=== PATIENT | female | born 1970 | race Two or more races ===

== ENCOUNTER 2023-08-07 03:35 | Inpatient (IN) | payer MEDICARE, MEDICAID ==
[~2023-08-07 03:35] MED LIST: ACET-2247 PO; ALBU2.5V39 NEB; AMIO200T68 PO; BISA10SU11 PR; DOCU-385 PO; HEPA500018 SQ; INSU100V SQ; IPRA0.2S49 NEB; PANT40VI14 IVP; TRAZ-252 PO
[2023-08-07 07:30] VITALS: BP 121/66; PULSE 73; RESP 20; TEMP 98.7
[2023-08-07 07:34] VITALS: BP 121/66; PULSE 73; RESP 18; TEMP 98.7
[2023-08-07] MEDS ORDERED: MORPHINE SULFATE 2 MG/ML SYRINGE IVP PRN (10:00)
[2023-08-07] MEDS ORDERED: REMDESIVIR 200 MG in SODIUM CHLORIDE 0.9% 250 ML IV ONE (10:00)
[2023-08-07] MEDS ORDERED: BISACODYL 10 MG RECTAL RECTAL SUPPOSITORY PR PRN (10:00)
[2023-08-07] MEDS ORDERED: ONDANSETRON HCL 4 MG/2 ML VIAL IVP PRN (10:00)
[2023-08-07] MEDS ORDERED: SODIUM CHLORIDE 0.9% 250 ML IV ONE (10:22)
[2023-08-07 11:31] VITALS: BP 131/68; PULSE 73; RESP 20; TEMP 99
[2023-08-07] MEDS: SODIUM CHLORIDE 1 GM TABLET PO SCH ×3 (12:04→20:52)
[2023-08-07 13:26] LABS: GLUCOMETER DEV NAME(LOC) 5N.2C; GLUCOSE,POINT OF CARE 129 MG/DL (70-110)
[2023-08-07 15:36] VITALS: BP 149/78; PULSE 78; RESP 20; TEMP 99.9
[2023-08-07] MEDS: HEPARIN SODIUM,PORCINE 5,000 UNITS/ML VIAL SQ SCH ×2 (16:00→23:44)
[2023-08-07 18:00] LABS: SODIUM,URINE RANDOM 88 mmol/l (20-110)
[2023-08-07 18:22] LABS: OSMOLALITY,URINE 383 mOsm/kg (50-1500)
[2023-08-07] MEDS: DOCUSATE SODIUM 100 MG CAPSULE PO SCH (20:52)
[2023-08-07] MEDS: ZOLPIDEM TARTRATE 5 MG TABLET PO PRN (20:52)
[2023-08-07] MEDS: INSULIN GLARGINE,HUM.REC.ANLOG 100 UNITS/ML SQ SCH (21:00)
[2023-08-07] MEDS: ACETAMINOPHEN 325 MG TABLET PO PRN (21:04)
[2023-08-07 21:39] VITALS: BP 158/75; PULSE 75; RESP 20; TEMP 100.3
[2023-08-07 23:43] VITALS: BP 138/85; PULSE 81; RESP 20; TEMP 98.9
[2023-08-08 00:16] LABS: GLUCOMETER DEV NAME(LOC) 5S.1B; GLUCOSE,POINT OF CARE 141 MG/DL (70-110)
[2023-08-08 04:08] VITALS: BP 122/68; PULSE 69; RESP 20; TEMP 98.6
[2023-08-08] MEDS: ALBUTEROL SULFATE HFA 90 MCG/PUFF 8 GM INHALER IH PRN (04:09)
[2023-08-08] MEDS: ACETAMINOPHEN 325 MG TABLET PO PRN ×2 (06:26→20:57)
[2023-08-08 08:04] VITALS: BP 120/69; PULSE 65; RESP 18; TEMP 97.7
[2023-08-08] MEDS: DEXAMETHASONE SOD PHOS 4 MG/ML VIAL IVP SCH (08:47)
[2023-08-08] MEDS: REMDESIVIR 100 MG in SODIUM CHLORIDE 0.9% 250 ML IV SCH (08:48)
[2023-08-08] MEDS: INSULIN GLARGINE,HUM.REC.ANLOG 100 UNITS/ML SQ SCH ×2 (09:00→20:56)
[2023-08-08 09:01] LABS: GLUCOMETER DEV NAME(LOC) 5S.2C; GLUCOSE,POINT OF CARE 150 MG/DL (70-110)
[2023-08-08] MEDS ORDERED: ChlorproMAZINE HCL 50 MG TABLET PO PRN (09:15)
[2023-08-08] MEDS: LORazepam 2 MG TABLET PO PRN (09:52)
[2023-08-08] MEDS: ClonazePAM 0.5 MG TABLET PO SCH ×3 (09:52→21:00)
[2023-08-08] MEDS: SODIUM CHLORIDE 1 GM TABLET PO SCH ×4 (09:53→20:41)
[2023-08-08] MEDS: PANTOPRAZOLE SODIUM 40 MG DR TABLET PO SCH (09:53)
[2023-08-08] MEDS: DOCUSATE SODIUM 100 MG CAPSULE PO SCH ×2 (09:53→20:41)
[2023-08-08] MEDS: AMIODARONE HCL 200 MG TABLET PO SCH (09:54)
[2023-08-08] MEDS: HEPARIN SODIUM,PORCINE 5,000 UNITS/ML VIAL SQ SCH ×3 (09:54→23:06)
[2023-08-08 10:46] LABS: GLUCOMETER DEV NAME(LOC) 5N.2C; GLUCOSE,POINT OF CARE 139 MG/DL (70-110)
[2023-08-08] MEDS: QUEtiapine FUMARATE 200 MG TABLET PO SCH ×3 (13:15→21:00)
[2023-08-08 16:02] VITALS: BP 102/58; PULSE 69; RESP 18; TEMP 97.5
[2023-08-08 20:01] VITALS: BP 125/68; PULSE 72; RESP 18; TEMP 98.4
[2023-08-09 01:05] VITALS: BP 136/70; PULSE 74; RESP 18; TEMP 99.3
[2023-08-09 03:30] VITALS: BP 129/66; PULSE 77; RESP 18; TEMP 99.1
[2023-08-09] MEDS: ACETAMINOPHEN 325 MG TABLET PO PRN ×2 (03:38→21:03)
[2023-08-09 08:00] VITALS: BP 129/69; PULSE 70; RESP 19; TEMP 98.1
[2023-08-09] MEDS: HEPARIN SODIUM,PORCINE 5,000 UNITS/ML VIAL SQ SCH ×3 (08:00→23:13)
[2023-08-09] MEDS: INSULIN GLARGINE,HUM.REC.ANLOG 100 UNITS/ML SQ SCH ×2 (09:00→21:20)
[2023-08-09] MEDS: PANTOPRAZOLE SODIUM 40 MG DR TABLET PO SCH (09:00)
[2023-08-09] MEDS: DEXAMETHASONE SOD PHOS 4 MG/ML VIAL IVP SCH (09:00)
[2023-08-09] MEDS: ClonazePAM 0.5 MG TABLET PO SCH ×2 (09:00→20:56)
[2023-08-09] MEDS: QUEtiapine FUMARATE 200 MG TABLET PO SCH ×2 (09:00→20:56)
[2023-08-09] MEDS: SODIUM CHLORIDE 1 GM TABLET PO SCH (09:00)
[2023-08-09] MEDS: DOCUSATE SODIUM 100 MG CAPSULE PO SCH ×2 (09:47→20:56)
[2023-08-09] MEDS: AMIODARONE HCL 200 MG TABLET PO SCH (09:47)
[2023-08-09] MEDS: REMDESIVIR 100 MG in SODIUM CHLORIDE 0.9% 250 ML IV SCH (09:49)
[2023-08-09 10:57] LABS: BASOPHILS % (AUTO) 0.1 % (0.0-2.0); EOSINOPHILS % (AUTO) 0 % (1.0-6.0); HEMATOCRIT 25.4 % (36-46); HEMOGLOBIN 8.4 g/dL (12.0-16.0); LYMPHOCYTES # (AUTO) 1.5 K/uL (1.0-4.8); LYMPHOCYTES % (AUTO) 15.2 % (22.0-44.0); MEAN CORPUSCULAR HEMOGLOBIN 26.6 pg (26.0-34.0); MEAN CORPUSCULAR VOLUME 81 fL (80-100); MONOCYTES % (AUTO) 10.5 % (2.0-9.0); NEUTROPHILS # (AUTO) 7.1 K/uL (1.8-7.7); NEUTROPHILS % (AUTO) 74.2 % (40.0-70.0); PLATELET COUNT (AUTO) 487 K/uL (150-450); RED BLOOD CELL COUNT(AUTO) 3.16 MIL/uL (4.00-5.20); RED CELL DISTRIBUTION WIDTH 18.4 % (11.5-14.5); WHITE BLOOD COUNT (AUTO) 9.6 K/uL (4.5-11.0)
[2023-08-09 11:18] LABS: ALANINE AMINOTRANSFERASE 16 U/L (12-78); ALBUMIN 2.4 g/dL (3.4-5.0); ALKALINE PHOSPHATASE 163 U/L (46-116); ANION GAP 3 mmol/L (8-16); ASPARTATE AMINOTRANSFERASE 58 U/L (15-37); BILIRUBIN,TOTAL 0.2 mg/dL (0.1-1.0); CALCIUM, TOTAL 8.6 mg/dL (8.8-10.5); CARBON DIOXIDE 30 mmol/L (22-29); CHLORIDE 89 mmol/L (98-107); CREATININE 0.76 mg/dL (0.60-1.30); GLOMERULAR FILTR. RATE CALC > 60 mL/min (>60); GLUCOSE,RANDOM 226 mg/dL (70-110); POTASSIUM 4.5 mmol/L (3.5-5.1); TOTAL PROTEIN, SERUM 9.1 g/dL (6.4-8.2); UREA NITROGEN, BLOOD 14 mg/dL (7-18)
[2023-08-09 11:40] LABS: SODIUM SERUM 122 mmol/L (136-145)
[2023-08-09] MEDS ORDERED: TOLVAPTAN 15 MG TABLET PO STA (11:53)
[2023-08-09] MEDS: NICOTINE 21 MG/24 HOUR PATCH TD SCH (16:17)
[2023-08-09 17:09] LABS: ANION GAP 5 mmol/L (8-16); CALCIUM, TOTAL 8.8 mg/dL (8.8-10.5); CARBON DIOXIDE 30 mmol/L (22-29); CHLORIDE 87 mmol/L (98-107); CREATININE 0.92 mg/dL (0.60-1.30); GLOMERULAR FILTR. RATE CALC > 60 mL/min (>60); GLUCOSE,RANDOM 182 mg/dL (70-110); POTASSIUM 4.7 mmol/L (3.5-5.1); UREA NITROGEN, BLOOD 19 mg/dL (7-18)
[2023-08-09 17:14] LABS: SODIUM SERUM 122 mmol/L (136-145)
[2023-08-09 19:39] LABS: ANION GAP 2 mmol/L (8-16); CALCIUM, TOTAL 8.8 mg/dL (8.8-10.5); CARBON DIOXIDE 32 mmol/L (22-29); CHLORIDE 88 mmol/L (98-107); CREATININE 0.82 mg/dL (0.60-1.30); GLOMERULAR FILTR. RATE CALC > 60 mL/min (>60); GLUCOSE,RANDOM 157 mg/dL (70-110); POTASSIUM 4.7 mmol/L (3.5-5.1); UREA NITROGEN, BLOOD 19 mg/dL (7-18)
[2023-08-09 19:45] LABS: SODIUM SERUM 122 mmol/L (136-145)
[2023-08-09] MEDS ORDERED: TOLVAPTAN 15 MG TABLET PO ONE (20:00)
[2023-08-09 20:05] VITALS: BP 128/76; PULSE 79; RESP 18; TEMP 99.1
[2023-08-09 21:19] LABS: COVID AG,FIA SOURCE NASAL SWAB
[2023-08-09 21:59] LABS: SARS-COV2 (COVID) ANTIGEN,FIA Positive (Negative)
[2023-08-10 05:09] VITALS: BP 109/64; PULSE 64; RESP 18; TEMP 97.9
[2023-08-10 07:51] LABS: GLUCOMETER DEV NAME(LOC) 6S.1B; GLUCOSE,POINT OF CARE 207 MG/DL (70-110)
[2023-08-10 08:28] VITALS: BP 119/60; PULSE 74; RESP 20; TEMP 98
[2023-08-10] MEDS: INSULIN GLARGINE,HUM.REC.ANLOG 100 UNITS/ML SQ SCH ×2 (09:00→20:41)
[2023-08-10] MEDS: NICOTINE 21 MG/24 HOUR PATCH TD SCH (09:15)
[2023-08-10] MEDS: HEPARIN SODIUM,PORCINE 5,000 UNITS/ML VIAL SQ SCH ×3 (09:15→23:00)
[2023-08-10] MEDS: ClonazePAM 0.5 MG TABLET PO SCH ×2 (09:15→20:40)
[2023-08-10] MEDS: PANTOPRAZOLE SODIUM 40 MG DR TABLET PO SCH (09:16)
[2023-08-10] MEDS: QUEtiapine FUMARATE 200 MG TABLET PO SCH ×2 (09:16→20:41)
[2023-08-10] MEDS: DOCUSATE SODIUM 100 MG CAPSULE PO SCH ×2 (09:16→21:00)
[2023-08-10] MEDS: AMIODARONE HCL 200 MG TABLET PO SCH (09:16)
[2023-08-10 11:42] LABS: BASOPHILS % (AUTO) 0.2 % (0.0-2.0); EOSINOPHILS % (AUTO) 0.1 % (1.0-6.0); HEMATOCRIT 23.1 % (36-46); HEMOGLOBIN 7.7 g/dL (12.0-16.0); LYMPHOCYTES # (AUTO) 1.8 K/uL (1.0-4.8); LYMPHOCYTES % (AUTO) 22.3 % (22.0-44.0); MEAN CORPUSCULAR HGB CONC 33.3 G/dL (31.0-37.0); MEAN CORPUSCULAR VOLUME 81 fL (80-100); MONOCYTES # (AUTO) 0.9 K/uL (0.1-1.0); MONOCYTES % (AUTO) 11.5 % (2.0-9.0); NEUTROPHILS # (AUTO) 5.4 K/uL (1.8-7.7); NEUTROPHILS % (AUTO) 65.9 % (40.0-70.0); PLATELET COUNT (AUTO) 405 K/uL (150-450); RED BLOOD CELL COUNT(AUTO) 2.85 MIL/uL (4.00-5.20); WHITE BLOOD COUNT (AUTO) 8.2 K/uL (4.5-11.0)
[2023-08-10 12:19] LABS: ALANINE AMINOTRANSFERASE 12 U/L (12-78); ALBUMIN 2.1 g/dL (3.4-5.0); ALKALINE PHOSPHATASE 127 U/L (46-116); ANION GAP 6 mmol/L (8-16); ASPARTATE AMINOTRANSFERASE 52 U/L (15-37); BILIRUBIN,TOTAL 0.2 mg/dL (0.1-1.0); CALCIUM, TOTAL 8.2 mg/dL (8.8-10.5); CARBON DIOXIDE 30 mmol/L (22-29); CHLORIDE 93 mmol/L (98-107); CREATININE 0.79 mg/dL (0.60-1.30); GLOMERULAR FILTR. RATE CALC > 60 mL/min (>60); GLUCOSE,RANDOM 166 mg/dL (70-110); POTASSIUM 4.1 mmol/L (3.5-5.1); SODIUM SERUM 129 mmol/L (136-145); TOTAL PROTEIN, SERUM 7.8 g/dL (6.4-8.2); UREA NITROGEN, BLOOD 20 mg/dL (7-18)
[2023-08-10 16:02] VITALS: BP 124/68; PULSE 74; RESP 20; TEMP 98.6
[2023-08-10] MEDS: SODIUM CHLORIDE 1 GM TABLET PO SCH ×2 (16:40→21:00)
[2023-08-10] MEDS: ACETAMINOPHEN 325 MG TABLET PO PRN (20:50)
[2023-08-11 05:32] VITALS: BP 120/66; PULSE 79; RESP 20; TEMP 99.3
[2023-08-11 08:30] VITALS: BP 128/73; PULSE 75; RESP 20; TEMP 99
[2023-08-11] MEDS: ClonazePAM 0.5 MG TABLET PO SCH ×2 (08:42→21:00)
[2023-08-11] MEDS: QUEtiapine FUMARATE 200 MG TABLET PO SCH ×2 (08:42→21:00)
[2023-08-11] MEDS: DOCUSATE SODIUM 100 MG CAPSULE PO SCH ×2 (08:42→21:00)
[2023-08-11] MEDS: HEPARIN SODIUM,PORCINE 5,000 UNITS/ML VIAL SQ SCH ×2 (08:42→15:29)
[2023-08-11] MEDS: AMIODARONE HCL 200 MG TABLET PO SCH (08:42)
[2023-08-11] MEDS: SODIUM CHLORIDE 1 GM TABLET PO SCH ×3 (08:42→21:00)
[2023-08-11] MEDS: PANTOPRAZOLE SODIUM 40 MG DR TABLET PO SCH (08:42)
[2023-08-11] MEDS: NICOTINE 21 MG/24 HOUR PATCH TD SCH (08:45)
[2023-08-11] MEDS: INSULIN GLARGINE,HUM.REC.ANLOG 100 UNITS/ML SQ SCH ×2 (09:00→21:00)
[2023-08-11 11:17] LABS: ALANINE AMINOTRANSFERASE 9 U/L (12-78); ALBUMIN 2.1 g/dL (3.4-5.0); ALKALINE PHOSPHATASE 124 U/L (46-116); ANION GAP 7 mmol/L (8-16); ASPARTATE AMINOTRANSFERASE 44 U/L (15-37); BILIRUBIN,TOTAL 0.2 mg/dL (0.1-1.0); CALCIUM, TOTAL 8.2 mg/dL (8.8-10.5); CARBON DIOXIDE 28 mmol/L (22-29); CHLORIDE 93 mmol/L (98-107); GLOMERULAR FILTR. RATE CALC > 60 mL/min (>60); GLUCOSE,RANDOM 205 mg/dL (70-110); POTASSIUM 4.7 mmol/L (3.5-5.1); SODIUM SERUM 128 mmol/L (136-145); TOTAL PROTEIN, SERUM 8.1 g/dL (6.4-8.2); UREA NITROGEN, BLOOD 18 mg/dL (7-18)
[2023-08-11 12:00] VITALS: BP 109/61; PULSE 80; RESP 20; TEMP 97.7
[2023-08-11 16:00] VITALS: BP 136/74; PULSE 75; RESP 20; TEMP 97.6
[2023-08-11 19:40] VITALS: BP 125/57; PULSE 74; RESP 20; TEMP 97.9
[2023-08-12 04:10] VITALS: BP 115/67; PULSE 75; RESP 16; TEMP 98.3
[2023-08-12] MEDS: ChlorproMAZINE HCL 50 MG/2 ML AMP IM PRN (04:29)
[2023-08-12] MEDS: LORazepam 2 MG/ML VIAL IM PRN (04:30)
[2023-08-12 06:06] LABS: GLUCOMETER DEV NAME(LOC) 6S.1B; GLUCOSE,POINT OF CARE 161 MG/DL (70-110)
[2023-08-12 07:06] LABS: ANION GAP 5 mmol/L (8-16); CALCIUM, TOTAL 8.4 mg/dL (8.8-10.5); CARBON DIOXIDE 29 mmol/L (22-29); CHLORIDE 94 mmol/L (98-107); GLOMERULAR FILTR. RATE CALC > 60 mL/min (>60); GLUCOSE,RANDOM 159 mg/dL (70-110); POTASSIUM 4.3 mmol/L (3.5-5.1); SODIUM SERUM 128 mmol/L (136-145); UREA NITROGEN, BLOOD 15 mg/dL (7-18)
[2023-08-12 07:29] VITALS: BP 118/68; PULSE 78; RESP 18; TEMP 98.4
[2023-08-12] MEDS: HEPARIN SODIUM,PORCINE 5,000 UNITS/ML VIAL SQ SCH ×4 (08:15→23:35)
[2023-08-12] MEDS: PANTOPRAZOLE SODIUM 40 MG DR TABLET PO SCH (08:15)
[2023-08-12] MEDS: ClonazePAM 0.5 MG TABLET PO SCH ×2 (08:15→20:09)
[2023-08-12] MEDS: AMIODARONE HCL 200 MG TABLET PO SCH (08:16)
[2023-08-12] MEDS: SODIUM CHLORIDE 1 GM TABLET PO SCH ×3 (08:16→20:10)
[2023-08-12] MEDS: NICOTINE 21 MG/24 HOUR PATCH TD SCH (08:16)
[2023-08-12] MEDS: DOCUSATE SODIUM 100 MG CAPSULE PO SCH ×3 (08:16→20:09)
[2023-08-12] MEDS: QUEtiapine FUMARATE 200 MG TABLET PO SCH ×2 (08:18→20:09)
[2023-08-12] MEDS: INSULIN GLARGINE,HUM.REC.ANLOG 100 UNITS/ML SQ SCH ×2 (08:52→20:10)
[2023-08-12 12:16] LABS: GLUCOMETER DEV NAME(LOC) 4E.2; GLUCOSE,POINT OF CARE 185 MG/DL (70-110)
[2023-08-12 15:08] VITALS: BP 122/72; PULSE 72; RESP 20; TEMP 97.8
[2023-08-12] MEDS: ACETAMINOPHEN 325 MG TABLET PO PRN (17:53)
[2023-08-12 19:10] VITALS: BP 117/67; PULSE 76; RESP 18; TEMP 98.7
[2023-08-12] MEDS: BENZONATATE 100 MG CAPSULE PO PRN (20:09)
[2023-08-12 20:11] LABS: GLUCOMETER DEV NAME(LOC) 6S.1B; GLUCOSE,POINT OF CARE 178 MG/DL (70-110)
[2023-08-13 05:10] VITALS: BP 123/67; PULSE 77; RESP 18; TEMP 98.7
[2023-08-13] MEDS: BENZONATATE 100 MG CAPSULE PO PRN (05:55)
[2023-08-13 06:01] LABS: GLUCOMETER DEV NAME(LOC) 6S.1B; GLUCOSE,POINT OF CARE 149 MG/DL (70-110)
[2023-08-13 07:09] VITALS: BP 126/72; PULSE 72; RESP 20; TEMP 98.4
[2023-08-13 07:46] LABS: GLUCOMETER DEV NAME(LOC) 6N.2B; GLUCOSE,POINT OF CARE 109 MG/DL (70-110)
[2023-08-13 08:57] LABS: EOSINOPHILS % (AUTO) 0.1 % (1.0-6.0); HEMATOCRIT 24.4 % (36-46); HEMOGLOBIN 7.8 g/dL (12.0-16.0); LYMPHOCYTES # (AUTO) 1.3 K/uL (1.0-4.8); LYMPHOCYTES % (AUTO) 13.9 % (22.0-44.0); MEAN CORPUSCULAR HEMOGLOBIN 26.4 pg (26.0-34.0); MEAN CORPUSCULAR HGB CONC 32.2 G/dL (31.0-37.0); MEAN CORPUSCULAR VOLUME 82 fL (80-100); MONOCYTES # (AUTO) 0.7 K/uL (0.1-1.0); MONOCYTES % (AUTO) 7.6 % (2.0-9.0); NEUTROPHILS # (AUTO) 7.3 K/uL (1.8-7.7); NEUTROPHILS % (AUTO) 77.4 % (40.0-70.0); PLATELET COUNT (AUTO) 440 K/uL (150-450); RED BLOOD CELL COUNT(AUTO) 2.97 MIL/uL (4.00-5.20); RED CELL DISTRIBUTION WIDTH 17.6 % (11.5-14.5); WHITE BLOOD COUNT (AUTO) 9.4 K/uL (4.5-11.0)
[2023-08-13 09:04] LABS: ANION GAP 4 mmol/L (8-16); CALCIUM, TOTAL 8.4 mg/dL (8.8-10.5); CARBON DIOXIDE 30 mmol/L (22-29); CHLORIDE 90 mmol/L (98-107); CREATININE 0.78 mg/dL (0.60-1.30); GLOMERULAR FILTR. RATE CALC > 60 mL/min (>60); GLUCOSE,RANDOM 215 mg/dL (70-110); POTASSIUM 4.4 mmol/L (3.5-5.1); UREA NITROGEN, BLOOD 12 mg/dL (7-18)
[2023-08-13 09:07] LABS: SODIUM SERUM 124 mmol/L (136-145)
[2023-08-13] MEDS ORDERED: TOLVAPTAN 15 MG TABLET PO ONE (10:00)
[2023-08-13] MEDS: HEPARIN SODIUM,PORCINE 5,000 UNITS/ML VIAL SQ SCH ×3 (10:12→23:09)
[2023-08-13] MEDS: MAGNESIUM HYDROXIDE SUSPENSION 30 ML UDCUP PO PRN (10:12)
[2023-08-13] MEDS: ACETAMINOPHEN 325 MG TABLET PO PRN ×2 (10:12→20:33)
[2023-08-13] MEDS: AMIODARONE HCL 200 MG TABLET PO SCH (10:13)
[2023-08-13] MEDS: QUEtiapine FUMARATE 200 MG TABLET PO SCH ×2 (10:13→20:32)
[2023-08-13] MEDS: NICOTINE 21 MG/24 HOUR PATCH TD SCH (10:13)
[2023-08-13] MEDS: DOCUSATE SODIUM 100 MG CAPSULE PO SCH ×2 (10:13→20:32)
[2023-08-13] MEDS: ClonazePAM 0.5 MG TABLET PO SCH ×2 (10:13→20:32)
[2023-08-13] MEDS: SODIUM CHLORIDE 1 GM TABLET PO SCH ×3 (10:13→20:32)
[2023-08-13] MEDS: PANTOPRAZOLE SODIUM 40 MG DR TABLET PO SCH (10:13)
[2023-08-13] MEDS: INSULIN GLARGINE,HUM.REC.ANLOG 100 UNITS/ML SQ SCH ×2 (10:14→20:33)
[2023-08-13 15:13] VITALS: BP 122/82; PULSE 68; RESP 18; TEMP 97.9
[2023-08-13 17:41] LABS: ANION GAP 4 mmol/L (8-16); CALCIUM, TOTAL 8.3 mg/dL (8.8-10.5); CARBON DIOXIDE 30 mmol/L (22-29); CHLORIDE 93 mmol/L (98-107); CREATININE 0.82 mg/dL (0.60-1.30); GLOMERULAR FILTR. RATE CALC > 60 mL/min (>60); GLUCOSE,RANDOM 282 mg/dL (70-110); SODIUM SERUM 127 mmol/L (136-145); UREA NITROGEN, BLOOD 15 mg/dL (7-18)
[2023-08-13 19:45] VITALS: BP 128/67; PULSE 82; RESP 20; TEMP 99.7
[2023-08-13 20:11] LABS: GLUCOMETER DEV NAME(LOC) 6N.2B; GLUCOSE,POINT OF CARE 232 MG/DL (70-110)
[2023-08-13] MEDS: TraZODone HCL 50 MG TABLET PO PRN (20:32)
[2023-08-13 23:36] LABS: GLUCOMETER DEV NAME(LOC) 6N.2B; GLUCOSE,POINT OF CARE 118 MG/DL (70-110)
[2023-08-14] VITALS (7 sets, daily range): BP systolic 95–140; BP diastolic 58–71; PULSE 68–90; RESP 18–20; TEMP 97.8–102
[2023-08-14 06:16] LABS: GLUCOMETER DEV NAME(LOC) 6S.1B; GLUCOSE,POINT OF CARE 86 MG/DL (70-110)
[2023-08-14] MEDS: HEPARIN SODIUM,PORCINE 5,000 UNITS/ML VIAL SQ SCH ×4 (08:00→23:39)
[2023-08-14] MEDS: NICOTINE 21 MG/24 HOUR PATCH TD SCH ×2 (08:23→09:00)
[2023-08-14] MEDS: PANTOPRAZOLE SODIUM 40 MG DR TABLET PO SCH (08:23)
[2023-08-14] MEDS: SODIUM CHLORIDE 1 GM TABLET PO SCH ×3 (08:24→20:35)
[2023-08-14] MEDS: AMIODARONE HCL 200 MG TABLET PO SCH ×2 (08:24→08:53)
[2023-08-14] MEDS: ClonazePAM 0.5 MG TABLET PO SCH ×2 (08:24→20:36)
[2023-08-14] MEDS: DOCUSATE SODIUM 100 MG CAPSULE PO SCH ×3 (08:24→20:35)
[2023-08-14] MEDS: QUEtiapine FUMARATE 200 MG TABLET PO SCH ×2 (08:24→20:35)
[2023-08-14 09:56] LABS: ANION GAP 4 mmol/L (8-16); CALCIUM, TOTAL 8.5 mg/dL (8.8-10.5); CARBON DIOXIDE 29 mmol/L (22-29); CHLORIDE 93 mmol/L (98-107); CREATININE 0.77 mg/dL (0.60-1.30); GLOMERULAR FILTR. RATE CALC > 60 mL/min (>60); GLUCOSE,RANDOM 189 mg/dL (70-110); POTASSIUM 4.3 mmol/L (3.5-5.1); SODIUM SERUM 126 mmol/L (136-145); UREA NITROGEN, BLOOD 10 mg/dL (7-18)
[2023-08-14] MEDS: INSULIN GLARGINE,HUM.REC.ANLOG 100 UNITS/ML SQ SCH ×2 (10:23→20:36)
[2023-08-14 11:10] LABS: COVID AG,FIA SOURCE NASAL SWAB
[2023-08-14] MEDS ORDERED: TOLVAPTAN 15 MG TABLET PO ONE (12:30)
[2023-08-14 12:40] LABS: SARS-COV2 (COVID) ANTIGEN,FIA Positive (Negative)
[2023-08-14 15:06] LABS: GLUCOMETER DEV NAME(LOC) 6S.1B; GLUCOSE,POINT OF CARE 137 MG/DL (70-110)
[2023-08-14 18:21] LABS: GLUCOMETER DEV NAME(LOC) 6S.1B; GLUCOSE,POINT OF CARE 224 MG/DL (70-110)
[2023-08-14] MEDS: ACETAMINOPHEN 325 MG TABLET PO PRN (18:51)
[2023-08-14] MEDS: TraZODone HCL 50 MG TABLET PO PRN (20:35)
[2023-08-14 21:01] LABS: GLUCOMETER DEV NAME(LOC) 6S.1B; GLUCOSE,POINT OF CARE 152 MG/DL (70-110)
[2023-08-15 02:35] LABS: APPEARANCE,URINE CLEAR (CLEAR); BILIRUBIN,URINE NEGATIVE (NEGATIVE); COLOR,URINE COLORLESS (YELLOW); GLUCOSE, URINE (UA) NEGATIVE (NEGATIVE); KETONES,URINE NEGATIVE (NEGATIVE); LEUKOCYTE ESTERASE ,URINE NEGATIVE (NEGATIVE); NITRATE,URINE NEGATIVE (NEGATIVE); OCCULT BLOOD,URINE LARGE (NEGATIVE); PROTEIN,URINE NEGATIVE (NEGATIVE); SPECIFIC GRAVITIY, URINE 1.003 (1.003-1.030); UROBILINOGEN,URINE <=1.0 mg/dL (<=1.0)
[2023-08-15 02:54] LABS: BACTERIA,URINE None Seen /HPF (None Seen); SQUAMOUS EPITHELIAL CELL,UR Few /LPF (None Seen); WBC,URINE None Seen /HPF (0-5)
[2023-08-15 03:58] VITALS: BP 106/61; PULSE 74; RESP 20; TEMP 98.2
[2023-08-15 06:21] LABS: GLUCOMETER DEV NAME(LOC) 4E.2; GLUCOSE,POINT OF CARE 94 MG/DL (70-110)
[2023-08-15 07:21] VITALS: BP 134/90; PULSE 86; RESP 19; TEMP 99.7
[2023-08-15] MEDS: HEPARIN SODIUM,PORCINE 5,000 UNITS/ML VIAL SQ SCH ×2 (08:00→16:00)
[2023-08-15] MEDS: PANTOPRAZOLE SODIUM 40 MG DR TABLET PO SCH ×2 (09:00→09:56)
[2023-08-15] MEDS: DOCUSATE SODIUM 100 MG CAPSULE PO SCH ×4 (09:00→21:00)
[2023-08-15] MEDS: AMIODARONE HCL 200 MG TABLET PO SCH (09:56)
[2023-08-15] MEDS: SODIUM CHLORIDE 1 GM TABLET PO SCH ×4 (09:56→20:53)
[2023-08-15] MEDS: NICOTINE 21 MG/24 HOUR PATCH TD SCH (09:56)
[2023-08-15] MEDS: QUEtiapine FUMARATE 200 MG TABLET PO SCH ×2 (09:56→20:54)
[2023-08-15] MEDS: ClonazePAM 0.5 MG TABLET PO SCH ×2 (09:56→20:54)
[2023-08-15] MEDS: INSULIN GLARGINE,HUM.REC.ANLOG 100 UNITS/ML SQ SCH ×2 (10:00→21:08)
[2023-08-15 10:42] LABS: CALCIUM, TOTAL 8.8 mg/dL (8.8-10.5); CARBON DIOXIDE 32 mmol/L (22-29); CHLORIDE 94 mmol/L (98-107); CREATININE 0.79 mg/dL (0.60-1.30); GLOMERULAR FILTR. RATE CALC > 60 mL/min (>60); GLUCOSE,RANDOM 167 mg/dL (70-110); PHOSPHORUS 3.6 mg/dL (2.5-4.9); POTASSIUM 4.5 mmol/L (3.5-5.1); SODIUM SERUM 126 mmol/L (136-145); UREA NITROGEN, BLOOD 11 mg/dL (7-18)
[2023-08-15 11:06] LABS: ANION GAP 1 mmol/L (8-16)
[2023-08-15] MEDS: ACETAMINOPHEN 325 MG TABLET PO PRN ×2 (11:53→18:03)
[2023-08-15] MEDS: AMOX TR/POT CLAV 875 MG/125 MG TABLET PO SCH ×3 (12:15→20:54)
[2023-08-15 15:35] VITALS: BP 115/57; PULSE 86; RESP 19; TEMP 99.7
[2023-08-15] MEDS: TOLVAPTAN 15 MG TABLET PO ONE ×2 (17:54→18:03)
[2023-08-15 20:00] VITALS: BP 105/65; PULSE 73; RESP 18; TEMP 99.2
[2023-08-15 23:31] LABS: GLUCOMETER DEV NAME(LOC) 4E.2; GLUCOSE,POINT OF CARE 118 MG/DL (70-110)
[2023-08-16] MEDS: HEPARIN SODIUM,PORCINE 5,000 UNITS/ML VIAL SQ SCH ×4 (00:06→23:58)
[2023-08-16 05:45] VITALS: BP 104/59; PULSE 75; RESP 18; TEMP 99.1
[2023-08-16] MEDS: ACETAMINOPHEN 325 MG TABLET PO PRN ×3 (06:03→22:15)
[2023-08-16 06:56] LABS: GLUCOMETER DEV NAME(LOC) 6S.1B; GLUCOSE,POINT OF CARE 161 MG/DL (70-110)
[2023-08-16 08:33] VITALS: BP 108/56; PULSE 72; RESP 18; TEMP 97.2
[2023-08-16] MEDS: DOCUSATE SODIUM 100 MG CAPSULE PO SCH ×3 (09:00→22:15)
[2023-08-16] MEDS: AMIODARONE HCL 200 MG TABLET PO SCH (09:53)
[2023-08-16] MEDS: SODIUM CHLORIDE 1 GM TABLET PO SCH ×4 (09:53→22:10)
[2023-08-16] MEDS: QUEtiapine FUMARATE 200 MG TABLET PO SCH ×3 (09:53→22:10)
[2023-08-16] MEDS: ClonazePAM 0.5 MG TABLET PO SCH ×3 (09:53→22:10)
[2023-08-16] MEDS: AMOX TR/POT CLAV 875 MG/125 MG TABLET PO SCH ×3 (09:54→22:10)
[2023-08-16] MEDS: PANTOPRAZOLE SODIUM 40 MG DR TABLET PO SCH (09:54)
[2023-08-16] MEDS: INSULIN GLARGINE,HUM.REC.ANLOG 100 UNITS/ML SQ SCH ×2 (10:05→21:00)
[2023-08-16] MEDS: NICOTINE 21 MG/24 HOUR PATCH TD SCH (11:52)
[2023-08-16 13:09] LABS: BASOPHILS % (AUTO) 0.3 % (0.0-2.0); EOSINOPHILS % (AUTO) 0.2 % (1.0-6.0); HEMATOCRIT 23.4 % (36-46); HEMOGLOBIN 7.5 g/dL (12.0-16.0); LYMPHOCYTES # (AUTO) 2.3 K/uL (1.0-4.8); MEAN CORPUSCULAR HEMOGLOBIN 25.8 pg (26.0-34.0); MEAN CORPUSCULAR HGB CONC 32.1 G/dL (31.0-37.0); MEAN CORPUSCULAR VOLUME 81 fL (80-100); MONOCYTES # (AUTO) 1.1 K/uL (0.1-1.0); MONOCYTES % (AUTO) 11.4 % (2.0-9.0); NEUTROPHILS # (AUTO) 6.5 K/uL (1.8-7.7); NEUTROPHILS % (AUTO) 65.1 % (40.0-70.0); PLATELET COUNT (AUTO) 530 K/uL (150-450); RED CELL DISTRIBUTION WIDTH 17.4 % (11.5-14.5)
[2023-08-16 13:23] LABS: ANION GAP 5 mmol/L (8-16); CALCIUM, TOTAL 8.5 mg/dL (8.8-10.5); CARBON DIOXIDE 31 mmol/L (22-29); CHLORIDE 96 mmol/L (98-107); CREATININE 0.77 mg/dL (0.60-1.30); GLOMERULAR FILTR. RATE CALC > 60 mL/min (>60); GLUCOSE,RANDOM 134 mg/dL (70-110); PHOSPHORUS 4.4 mg/dL (2.5-4.9); POTASSIUM 4.9 mmol/L (3.5-5.1); SODIUM SERUM 132 mmol/L (136-145); UREA NITROGEN, BLOOD 14 mg/dL (7-18)
[2023-08-16 13:26] LABS: GLUCOMETER DEV NAME(LOC) 6N.2B; GLUCOSE,POINT OF CARE 220 MG/DL (70-110)
[2023-08-16 13:26] LABS: GLUCOMETER DEV NAME(LOC) 4E.2; GLUCOSE,POINT OF CARE 138 MG/DL (70-110)
[2023-08-16] MEDS: MAGNESIUM HYDROXIDE SUSPENSION 30 ML UDCUP PO PRN (16:44)
[2023-08-16 18:44] VITALS: BP 110/58; PULSE 75; RESP 18; TEMP 97.8
[2023-08-16 19:30] VITALS: BP 110/59; PULSE 75; RESP 18; TEMP 98.3
[2023-08-16] MEDS: LORazepam 2 MG TABLET PO PRN (22:10)
[2023-08-16] MEDS: ZOLPIDEM TARTRATE 5 MG TABLET PO PRN (22:15)
[2023-08-17] MEDS: ChlorproMAZINE HCL 50 MG/2 ML AMP IM PRN (00:19)
[2023-08-17] MEDS: LORazepam 2 MG/ML VIAL IM PRN (00:19)
[2023-08-17 00:56] LABS: GLUCOMETER DEV NAME(LOC) 4E.2; GLUCOSE,POINT OF CARE 152 MG/DL (70-110)
[2023-08-17 05:45] VITALS: BP 121/67; PULSE 78; RESP 18; TEMP 99.9
[2023-08-17] MEDS: ACETAMINOPHEN 325 MG TABLET PO PRN (06:12)
[2023-08-17 06:45] VITALS: TEMP 99.5
[2023-08-17] MEDS: HEPARIN SODIUM,PORCINE 5,000 UNITS/ML VIAL SQ SCH ×3 (08:00→16:00)
[2023-08-17] MEDS: AMOX TR/POT CLAV 875 MG/125 MG TABLET PO SCH ×2 (08:58→21:38)
[2023-08-17] MEDS: AMIODARONE HCL 200 MG TABLET PO SCH (08:59)
[2023-08-17] MEDS: QUEtiapine FUMARATE 200 MG TABLET PO SCH ×2 (08:59→20:16)
[2023-08-17] MEDS: DOCUSATE SODIUM 100 MG CAPSULE PO SCH ×2 (08:59→20:15)
[2023-08-17] MEDS: ClonazePAM 0.5 MG TABLET PO SCH ×2 (08:59→20:15)
[2023-08-17] MEDS: PANTOPRAZOLE SODIUM 40 MG DR TABLET PO SCH (08:59)
[2023-08-17] MEDS: SODIUM CHLORIDE 1 GM TABLET PO SCH ×3 (08:59→20:16)
[2023-08-17] MEDS: NICOTINE 21 MG/24 HOUR PATCH TD SCH (09:00)
[2023-08-17 09:02] VITALS: BP 111/54; PULSE 76; RESP 20; TEMP 99.3
[2023-08-17] MEDS: INSULIN GLARGINE,HUM.REC.ANLOG 100 UNITS/ML SQ SCH ×2 (09:26→20:16)
[2023-08-17 09:46] LABS: GLUCOMETER DEV NAME(LOC) 4E.2; GLUCOSE,POINT OF CARE 200 MG/DL (70-110)
[2023-08-17 17:55] VITALS: BP 115/69; PULSE 74; RESP 20; TEMP 98.8
[2023-08-17 22:02] LABS: GLUCOMETER DEV NAME(LOC) 6S.1B; GLUCOSE,POINT OF CARE 156 MG/DL (70-110)
[2023-08-18] MEDS: BENZONATATE 100 MG CAPSULE PO PRN ×2 (05:03→16:58)
[2023-08-18 05:10] VITALS: BP 129/61; PULSE 81; RESP 20; TEMP 98.2
[2023-08-18 08:13] VITALS: BP 120/65; PULSE 79; RESP 19; TEMP 98.9
[2023-08-18] MEDS: HEPARIN SODIUM,PORCINE 5,000 UNITS/ML VIAL SQ SCH ×3 (09:27→16:00)
[2023-08-18] MEDS: NICOTINE 21 MG/24 HOUR PATCH TD SCH (09:28)
[2023-08-18] MEDS: QUEtiapine FUMARATE 200 MG TABLET PO SCH ×2 (09:28→20:37)
[2023-08-18] MEDS: AMOX TR/POT CLAV 875 MG/125 MG TABLET PO SCH ×2 (09:28→20:37)
[2023-08-18] MEDS: DOCUSATE SODIUM 100 MG CAPSULE PO SCH ×2 (09:28→20:37)
[2023-08-18] MEDS: SODIUM CHLORIDE 1 GM TABLET PO SCH ×3 (09:29→20:37)
[2023-08-18] MEDS: AMIODARONE HCL 200 MG TABLET PO SCH (09:29)
[2023-08-18] MEDS: ClonazePAM 0.5 MG TABLET PO SCH ×2 (09:29→20:37)
[2023-08-18] MEDS: PANTOPRAZOLE SODIUM 40 MG DR TABLET PO SCH (09:29)
[2023-08-18] MEDS: INSULIN GLARGINE,HUM.REC.ANLOG 100 UNITS/ML SQ SCH ×2 (09:33→20:38)
[2023-08-18 12:25] VITALS: BP 116/59; PULSE 86; RESP 21; TEMP 99.1
[2023-08-18 16:58] VITALS: BP 140/72; PULSE 85; RESP 20; TEMP 99.1
[2023-08-18] MEDS: HYDROCODONE/ACETAMINOPHEN 5-325 MG TABLET PO PRN ×2 (16:58→20:47)
[2023-08-18 19:27] VITALS: BP 118/68; PULSE 81; RESP 18; TEMP 99
[2023-08-18 20:36] LABS: GLUCOMETER DEV NAME(LOC) 6S.1B; GLUCOSE,POINT OF CARE 171 MG/DL (70-110)
[2023-08-18] MEDS: ALBUTEROL SULFATE HFA 90 MCG/PUFF 8 GM INHALER IH PRN (20:48)
[2023-08-19 01:16] LABS: GLUCOMETER DEV NAME(LOC) 4E.2; GLUCOSE,POINT OF CARE 122 MG/DL (70-110)
[2023-08-19] MEDS: BENZONATATE 100 MG CAPSULE PO PRN ×2 (02:02→09:21)
[2023-08-19] MEDS: ALBUTEROL SULFATE HFA 90 MCG/PUFF 8 GM INHALER IH PRN ×2 (02:02→09:21)
[2023-08-19] MEDS: HEPARIN SODIUM,PORCINE 5,000 UNITS/ML VIAL SQ SCH ×5 (02:02→23:20)
[2023-08-19 02:15] VITALS: BP 138/71; PULSE 85; RESP 18; TEMP 98.1
[2023-08-19 05:26] VITALS: BP 130/77; PULSE 97; RESP 18; TEMP 99.3
[2023-08-19 08:06] VITALS: BP 124/68; PULSE 84; RESP 18; TEMP 99
[2023-08-19] MEDS: DOCUSATE SODIUM 100 MG CAPSULE PO SCH ×2 (09:21→21:08)
[2023-08-19] MEDS: AMOX TR/POT CLAV 875 MG/125 MG TABLET PO SCH ×2 (09:21→21:08)
[2023-08-19] MEDS: AMIODARONE HCL 200 MG TABLET PO SCH (09:22)
[2023-08-19] MEDS: NICOTINE 21 MG/24 HOUR PATCH TD SCH (09:22)
[2023-08-19] MEDS: QUEtiapine FUMARATE 200 MG TABLET PO SCH ×2 (09:22→21:09)
[2023-08-19] MEDS: SODIUM CHLORIDE 1 GM TABLET PO SCH ×3 (09:22→21:09)
[2023-08-19] MEDS: ClonazePAM 0.5 MG TABLET PO SCH ×2 (09:22→21:09)
[2023-08-19] MEDS: PANTOPRAZOLE SODIUM 40 MG DR TABLET PO SCH (09:22)
[2023-08-19] MEDS: INSULIN GLARGINE,HUM.REC.ANLOG 100 UNITS/ML SQ SCH ×2 (09:26→21:45)
[2023-08-19 16:07] VITALS: BP 132/74; PULSE 88; RESP 18; TEMP 98.6
[2023-08-19 17:06] LABS: GLUCOMETER DEV NAME(LOC) 6N.2B; GLUCOSE,POINT OF CARE 92 MG/DL (70-110)
[2023-08-19 19:26] VITALS: BP 124/70; PULSE 83; RESP 18; TEMP 98.4
[2023-08-19 19:59] VITALS: BP 124/70; PULSE 83; RESP 18; TEMP 98.4
[2023-08-19] MEDS: HYDROCODONE/ACETAMINOPHEN 5-325 MG TABLET PO PRN (21:44)
[2023-08-20 00:51] LABS: GLUCOMETER DEV NAME(LOC) 6N.2B; GLUCOSE,POINT OF CARE 148 MG/DL (70-110)
[2023-08-20 05:23] VITALS: BP 143/63; PULSE 81; RESP 19; TEMP 98.6
[2023-08-20 06:56] LABS: GLUCOMETER DEV NAME(LOC) 6N.2B; GLUCOSE,POINT OF CARE 97 MG/DL (70-110)
[2023-08-20 08:04] VITALS: BP 142/68; PULSE 91; RESP 18; TEMP 99.2
[2023-08-20] MEDS: DOCUSATE SODIUM 100 MG CAPSULE PO SCH ×3 (09:32→21:12)
[2023-08-20] MEDS: BENZONATATE 100 MG CAPSULE PO PRN ×2 (09:32→21:13)
[2023-08-20] MEDS: SODIUM CHLORIDE 1 GM TABLET PO SCH ×3 (09:32→21:12)
[2023-08-20] MEDS: AMOX TR/POT CLAV 875 MG/125 MG TABLET PO SCH ×2 (09:32→21:11)
[2023-08-20] MEDS: NICOTINE 21 MG/24 HOUR PATCH TD SCH (09:33)
[2023-08-20] MEDS: ClonazePAM 0.5 MG TABLET PO SCH ×2 (09:33→21:12)
[2023-08-20] MEDS: QUEtiapine FUMARATE 200 MG TABLET PO SCH ×2 (09:33→21:12)
[2023-08-20] MEDS: HEPARIN SODIUM,PORCINE 5,000 UNITS/ML VIAL SQ SCH ×3 (09:33→23:35)
[2023-08-20] MEDS: PANTOPRAZOLE SODIUM 40 MG DR TABLET PO SCH (09:33)
[2023-08-20] MEDS: AMIODARONE HCL 200 MG TABLET PO SCH (09:34)
[2023-08-20] MEDS: INSULIN GLARGINE,HUM.REC.ANLOG 100 UNITS/ML SQ SCH ×2 (09:36→21:31)
[2023-08-20 10:46] LABS: BASOPHILS % (AUTO) 0.4 % (0.0-2.0); EOSINOPHILS % (AUTO) 0 % (1.0-6.0); HEMOGLOBIN 7.1 g/dL (12.0-16.0); LYMPHOCYTES # (AUTO) 1.7 K/uL (1.0-4.8); LYMPHOCYTES % (AUTO) 14.1 % (22.0-44.0); MEAN CORPUSCULAR HEMOGLOBIN 25.6 pg (26.0-34.0); MEAN CORPUSCULAR HGB CONC 32.4 G/dL (31.0-37.0); MEAN CORPUSCULAR VOLUME 79 fL (80-100); MONOCYTES % (AUTO) 8.7 % (2.0-9.0); NEUTROPHILS # (AUTO) 9.2 K/uL (1.8-7.7); NEUTROPHILS % (AUTO) 76.8 % (40.0-70.0); PLATELET COUNT (AUTO) 508 K/uL (150-450); RED CELL DISTRIBUTION WIDTH 16.4 % (11.5-14.5)
[2023-08-20 11:03] LABS: ALANINE AMINOTRANSFERASE 12 U/L (12-78); ALBUMIN 1.7 g/dL (3.4-5.0); ALKALINE PHOSPHATASE 105 U/L (46-116); ANION GAP 1 mmol/L (8-16); ASPARTATE AMINOTRANSFERASE 43 U/L (15-37); BILIRUBIN,TOTAL 0.2 mg/dL (0.1-1.0); CALCIUM, TOTAL 7.9 mg/dL (8.8-10.5); CARBON DIOXIDE 33 mmol/L (22-29); CHLORIDE 86 mmol/L (98-107); GLOMERULAR FILTR. RATE CALC > 60 mL/min (>60); GLUCOSE,RANDOM 145 mg/dL (70-110); POTASSIUM 4.5 mmol/L (3.5-5.1); TOTAL PROTEIN, SERUM 7.4 g/dL (6.4-8.2); UREA NITROGEN, BLOOD 9 mg/dL (7-18)
[2023-08-20 11:11] LABS: SODIUM SERUM 120 mmol/L (136-145)
[2023-08-20 15:10] VITALS: BP 128/68; PULSE 90; RESP 20; TEMP 99.4
[2023-08-20 19:47] VITALS: BP 132/60; PULSE 91; RESP 18; TEMP 98.1
[2023-08-20 23:36] LABS: GLUCOMETER DEV NAME(LOC) 4E.2; GLUCOSE,POINT OF CARE 129 MG/DL (70-110)
[2023-08-21 03:46] LABS: GLUCOMETER DEV NAME(LOC) 6N.2B; GLUCOSE,POINT OF CARE 102 MG/DL (70-110)
[2023-08-21 03:55] VITALS: BP 127/68; PULSE 83; RESP 18; TEMP 99.2
[2023-08-21 08:00] VITALS: BP 132/72; PULSE 87; RESP 20; TEMP 98.9
[2023-08-21] MEDS: SODIUM CHLORIDE 1 GM TABLET PO SCH ×3 (08:36→21:13)
[2023-08-21] MEDS: DOCUSATE SODIUM 100 MG CAPSULE PO SCH ×2 (08:36→21:13)
[2023-08-21] MEDS: QUEtiapine FUMARATE 200 MG TABLET PO SCH ×2 (08:36→21:13)
[2023-08-21] MEDS: HEPARIN SODIUM,PORCINE 5,000 UNITS/ML VIAL SQ SCH ×3 (08:36→23:21)
[2023-08-21] MEDS: AMOX TR/POT CLAV 875 MG/125 MG TABLET PO SCH ×2 (08:36→21:13)
[2023-08-21] MEDS: PANTOPRAZOLE SODIUM 40 MG DR TABLET PO SCH (08:36)
[2023-08-21] MEDS: ClonazePAM 0.5 MG TABLET PO SCH ×2 (08:36→21:13)
[2023-08-21] MEDS: AMIODARONE HCL 200 MG TABLET PO SCH (08:36)
[2023-08-21] MEDS: NICOTINE 21 MG/24 HOUR PATCH TD SCH (08:41)
[2023-08-21] MEDS: INSULIN GLARGINE,HUM.REC.ANLOG 100 UNITS/ML SQ SCH ×2 (08:58→21:00)
[2023-08-21 11:16] LABS: ABG METHEMOGLOBIN 0.3 % (0.0-1.5); SOURCE, BLOOD GAS ARTERIAL; TEMPERATURE, FAHRENHEIT, BG 98.9 FAHREN (96.0-98.6)
[2023-08-21 11:50] LABS: ALANINE AMINOTRANSFERASE 12 U/L (12-78); ALBUMIN 1.7 g/dL (3.4-5.0); ALKALINE PHOSPHATASE 98 U/L (46-116); ANION GAP 2 mmol/L (8-16); ASPARTATE AMINOTRANSFERASE 44 U/L (15-37); BILIRUBIN,TOTAL 0.2 mg/dL (0.1-1.0); CALCIUM, TOTAL 7.9 mg/dL (8.8-10.5); CARBON DIOXIDE 34 mmol/L (22-29); CHLORIDE 85 mmol/L (98-107); GLOMERULAR FILTR. RATE CALC > 60 mL/min (>60); GLUCOSE,RANDOM 162 mg/dL (70-110); POTASSIUM 4.4 mmol/L (3.5-5.1); TOTAL PROTEIN, SERUM 7.5 g/dL (6.4-8.2); UREA NITROGEN, BLOOD 9 mg/dL (7-18)
[2023-08-21 11:59] LABS: SODIUM SERUM 121 mmol/L (136-145)
[2023-08-21 12:39] LABS: ABG BASE EXCESS 7.3 mmol/L (-2.0-3.0); ABG CARBOXYHEMOGLOBIN 1.8 % (0.0-1.5); ABG OXYGEN CONTENT 8.2 mL/dL (15.0-23.0); ABG OXYHEMOGLOBIN 73.2 % (94.0-100.0); ABG PCO2 58 mmHg (35-45); ABG PH 7.366 (7.35-7.450); PO2, ARTERIAL BG 43.7 mmHg (84.0-92.0)
[2023-08-21 12:44] LABS: ABG TOTAL HEMOGLOBIN 7.9 G/dL (12.0-18.0)
[2023-08-21 12:45] LABS: ABG A-A DIFF O2 36.1 mmHg (10-20.0); ABG OXYGEN SATURATION 74.8 % (95.0-98.0); ALLEN TEST, BLOOD GAS Positive; O2 DEVICE,BLOOD GAS ROOM AIR (ROOM AIR); SITE, BLOOD GAS LFT RADIAL
[2023-08-21 15:27] VITALS: BP 141/70; PULSE 88; RESP 20; TEMP 99.2
[2023-08-21] MEDS: FLUTICASONE/VILANTEROL 200-25 MCG/INH INHALER [14] IH SCH (16:00)
[2023-08-21 18:22] LABS: GLUCOMETER DEV NAME(LOC) 6N.2B; GLUCOSE,POINT OF CARE 73 MG/DL (70-110)
[2023-08-21 19:30] VITALS: BP 129/75; PULSE 87; RESP 18; TEMP 99.9
[2023-08-21] MEDS: ACETAMINOPHEN 325 MG TABLET PO PRN (19:41)
[2023-08-21] MEDS: BENZONATATE 100 MG CAPSULE PO PRN (21:14)
[2023-08-22 00:01] LABS: GLUCOMETER DEV NAME(LOC) 4E.2; GLUCOSE,POINT OF CARE 99 MG/DL (70-110)
[2023-08-22 04:15] VITALS: BP 102/53; PULSE 81; RESP 18; TEMP 97.6
[2023-08-22 07:32] VITALS: BP 110/58; PULSE 84; RESP 20; TEMP 98.2
[2023-08-22] MEDS: DOCUSATE SODIUM 100 MG CAPSULE PO SCH ×2 (08:34→19:46)
[2023-08-22] MEDS: ClonazePAM 0.5 MG TABLET PO SCH ×2 (08:35→19:46)
[2023-08-22] MEDS: QUEtiapine FUMARATE 200 MG TABLET PO SCH ×2 (08:35→19:46)
[2023-08-22] MEDS: PANTOPRAZOLE SODIUM 40 MG DR TABLET PO SCH (08:35)
[2023-08-22] MEDS: AMOX TR/POT CLAV 875 MG/125 MG TABLET PO SCH ×2 (08:35→19:46)
[2023-08-22] MEDS: SODIUM CHLORIDE 1 GM TABLET PO SCH (08:35)
[2023-08-22] MEDS: AMIODARONE HCL 200 MG TABLET PO SCH (08:35)
[2023-08-22] MEDS: FLUTICASONE/VILANTEROL 200-25 MCG/INH INHALER [14] IH SCH (08:36)
[2023-08-22] MEDS: HEPARIN SODIUM,PORCINE 5,000 UNITS/ML VIAL SQ SCH ×3 (08:36→23:32)
[2023-08-22] MEDS: INSULIN GLARGINE,HUM.REC.ANLOG 100 UNITS/ML SQ SCH ×2 (08:46→20:44)
[2023-08-22] MEDS: NICOTINE 21 MG/24 HOUR PATCH TD SCH (08:47)
[2023-08-22] MEDS ORDERED: TOLVAPTAN 15 MG TABLET PO ONE (12:15)
[2023-08-22 15:22] VITALS: BP 124/75; PULSE 87; RESP 20; TEMP 98.7
[2023-08-22 17:25] LABS: ANION GAP 2 mmol/L (8-16); CALCIUM, TOTAL 8.1 mg/dL (8.8-10.5); CARBON DIOXIDE 36 mmol/L (22-29); CHLORIDE 88 mmol/L (98-107); CREATININE 0.83 mg/dL (0.60-1.30); GLOMERULAR FILTR. RATE CALC > 60 mL/min (>60); GLUCOSE,RANDOM 150 mg/dL (70-110); POTASSIUM 4.3 mmol/L (3.5-5.1); SODIUM SERUM 125 mmol/L (136-145); UREA NITROGEN, BLOOD 8 mg/dL (7-18)
[2023-08-22 17:30] LABS: PHOSPHORUS 2.4 mg/dL (2.5-4.9)
[2023-08-22 18:51] LABS: GLUCOMETER DEV NAME(LOC) 6S.1B; GLUCOSE,POINT OF CARE 180 MG/DL (70-110)
[2023-08-22 18:51] LABS: GLUCOMETER DEV NAME(LOC) 6S.1B; GLUCOSE,POINT OF CARE 74 MG/DL (70-110)
[2023-08-22 19:36] VITALS: BP 131/69; PULSE 82; RESP 20; TEMP 101.7
[2023-08-22] MEDS: BENZONATATE 100 MG CAPSULE PO PRN (19:47)
[2023-08-22] MEDS: ACETAMINOPHEN 325 MG TABLET PO PRN (19:47)
[2023-08-22 21:23] VITALS: TEMP 98.9
[2023-08-23] VITALS (14 sets, daily range): BP systolic 86–121; BP diastolic 52–72; PULSE 68–88; RESP 16–20; TEMP 97.8–99
[2023-08-23 01:16] LABS: GLUCOMETER DEV NAME(LOC) 6S.1B; GLUCOSE,POINT OF CARE 146 MG/DL (70-110)
[2023-08-23] MEDS: BENZONATATE 100 MG CAPSULE PO PRN (05:16)
[2023-08-23] MEDS: HYDROCODONE/ACETAMINOPHEN 5-325 MG TABLET PO PRN ×3 (05:20→20:45)
[2023-08-23] MEDS: HEPARIN SODIUM,PORCINE 5,000 UNITS/ML VIAL SQ SCH ×3 (08:00→16:00)
[2023-08-23] MEDS: QUEtiapine FUMARATE 200 MG TABLET PO SCH ×2 (08:58→20:31)
[2023-08-23] MEDS: DOCUSATE SODIUM 100 MG CAPSULE PO SCH ×2 (08:58→20:31)
[2023-08-23] MEDS: AMOX TR/POT CLAV 875 MG/125 MG TABLET PO SCH ×2 (08:58→20:31)
[2023-08-23] MEDS: ClonazePAM 0.5 MG TABLET PO SCH ×2 (08:59→20:31)
[2023-08-23] MEDS: PANTOPRAZOLE SODIUM 40 MG DR TABLET PO SCH (08:59)
[2023-08-23] MEDS: AMIODARONE HCL 200 MG TABLET PO SCH (09:00)
[2023-08-23] MEDS: NICOTINE 21 MG/24 HOUR PATCH TD SCH (09:00)
[2023-08-23] MEDS: FLUTICASONE/VILANTEROL 200-25 MCG/INH INHALER [14] IH SCH (09:19)
[2023-08-23] MEDS: INSULIN GLARGINE,HUM.REC.ANLOG 100 UNITS/ML SQ SCH ×2 (09:23→20:37)
[2023-08-23 11:17] LABS: ANION GAP 1 mmol/L (8-16); CALCIUM, TOTAL 7.9 mg/dL (8.8-10.5); CARBON DIOXIDE 35 mmol/L (22-29); CHLORIDE 86 mmol/L (98-107); CREATININE 0.78 mg/dL (0.60-1.30); GLOMERULAR FILTR. RATE CALC > 60 mL/min (>60); GLUCOSE,RANDOM 163 mg/dL (70-110); PHOSPHORUS 2.3 mg/dL (2.5-4.9); POTASSIUM 4.2 mmol/L (3.5-5.1); UREA NITROGEN, BLOOD 7 mg/dL (7-18)
[2023-08-23 11:22] LABS: SODIUM SERUM 122 mmol/L (136-145)
[2023-08-23 11:23] LABS: BASOPHILS % (AUTO) 0.2 % (0.0-2.0); EOSINOPHILS % (AUTO) 0.1 % (1.0-6.0); LYMPHOCYTES # (AUTO) 1.7 K/uL (1.0-4.8); LYMPHOCYTES % (AUTO) 14.4 % (22.0-44.0); MEAN CORPUSCULAR HEMOGLOBIN 26.2 pg (26.0-34.0); MEAN CORPUSCULAR HGB CONC 33.3 G/dL (31.0-37.0); MEAN CORPUSCULAR VOLUME 79 fL (80-100); MONOCYTES % (AUTO) 8.1 % (2.0-9.0); NEUTROPHILS # (AUTO) 9.2 K/uL (1.8-7.7); NEUTROPHILS % (AUTO) 77.2 % (40.0-70.0); PLATELET COUNT (AUTO) 532 K/uL (150-450); RED BLOOD CELL COUNT(AUTO) 2.62 MIL/uL (4.00-5.20); RED CELL DISTRIBUTION WIDTH 16.8 % (11.5-14.5); WHITE BLOOD COUNT (AUTO) 11.9 K/uL (4.5-11.0)
[2023-08-23 11:26] LABS: HEMATOCRIT 20.6 % (36-46); HEMOGLOBIN 6.9 g/dL (12.0-16.0)
[2023-08-23] MEDS ORDERED: TOLVAPTAN 15 MG TABLET PO ONE ×2 (11:30→16:00)
[2023-08-23] MEDS ORDERED: SODIUM CHLORIDE 0.9% 500 ML IV ONE (14:03)
[2023-08-23] MEDS ORDERED: MAGNESIUM SULFATE 2 GM/WATER 50 ML IV ONE (16:30)
[2023-08-24] MEDS: HEPARIN SODIUM,PORCINE 5,000 UNITS/ML VIAL SQ SCH ×3 (00:52→14:58)
[2023-08-24 04:18] VITALS: BP 108/72; PULSE 77; RESP 18; TEMP 97.9
[2023-08-24 06:31] LABS: GLUCOMETER DEV NAME(LOC) 4E.2; GLUCOSE,POINT OF CARE 111 MG/DL (70-110)
[2023-08-24 06:31] LABS: GLUCOMETER DEV NAME(LOC) 6S.1B; GLUCOSE,POINT OF CARE 171 MG/DL (70-110)
[2023-08-24 07:47] LABS: BASOPHILS % (AUTO) 0.4 % (0.0-2.0); EOSINOPHILS % (AUTO) 0.2 % (1.0-6.0); HEMATOCRIT 28.2 % (36-46); HEMOGLOBIN 9.2 g/dL (12.0-16.0); LYMPHOCYTES # (AUTO) 1.6 K/uL (1.0-4.8); LYMPHOCYTES % (AUTO) 16.6 % (22.0-44.0); MEAN CORPUSCULAR HEMOGLOBIN 26.7 pg (26.0-34.0); MEAN CORPUSCULAR HGB CONC 32.7 G/dL (31.0-37.0); MEAN CORPUSCULAR VOLUME 82 fL (80-100); MONOCYTES # (AUTO) 0.8 K/uL (0.1-1.0); MONOCYTES % (AUTO) 8.8 % (2.0-9.0); NEUTROPHILS # (AUTO) 7.1 K/uL (1.8-7.7); PLATELET COUNT (AUTO) 539 K/uL (150-450); RED BLOOD CELL COUNT(AUTO) 3.46 MIL/uL (4.00-5.20); RED CELL DISTRIBUTION WIDTH 16.8 % (11.5-14.5); WHITE BLOOD COUNT (AUTO) 9.6 K/uL (4.5-11.0)
[2023-08-24] MEDS: AMOX TR/POT CLAV 875 MG/125 MG TABLET PO SCH (07:51)
[2023-08-24] MEDS: AMIODARONE HCL 200 MG TABLET PO SCH (07:52)
[2023-08-24] MEDS: QUEtiapine FUMARATE 200 MG TABLET PO SCH (07:52)
[2023-08-24] MEDS: ClonazePAM 0.5 MG TABLET PO SCH (07:52)
[2023-08-24] MEDS: DOCUSATE SODIUM 100 MG CAPSULE PO SCH (07:52)
[2023-08-24] MEDS: PANTOPRAZOLE SODIUM 40 MG DR TABLET PO SCH (07:53)
[2023-08-24] MEDS: HYDROCODONE/ACETAMINOPHEN 5-325 MG TABLET PO PRN (07:53)
[2023-08-24] MEDS: NICOTINE 21 MG/24 HOUR PATCH TD SCH (07:55)
[2023-08-24] MEDS: FLUTICASONE/VILANTEROL 200-25 MCG/INH INHALER [14] IH SCH (07:56)
[2023-08-24 08:12] LABS: ANION GAP 2 mmol/L (8-16); CALCIUM, TOTAL 9.1 mg/dL (8.8-10.5); CARBON DIOXIDE 36 mmol/L (22-29); CHLORIDE 89 mmol/L (98-107); CREATININE 0.68 mg/dL (0.60-1.30); GLOMERULAR FILTR. RATE CALC > 60 mL/min (>60); GLUCOSE,RANDOM 119 mg/dL (70-110); PHOSPHORUS 3.4 mg/dL (2.5-4.9); POTASSIUM 4.5 mmol/L (3.5-5.1); SODIUM SERUM 127 mmol/L (136-145); UREA NITROGEN, BLOOD 5 mg/dL (7-18)
[2023-08-24 08:15] VITALS: BP 141/70; PULSE 83; RESP 20; TEMP 99
[2023-08-24] MEDS: INSULIN GLARGINE,HUM.REC.ANLOG 100 UNITS/ML SQ SCH (08:19)
[2023-08-24] MEDS ORDERED: TOLVAPTAN 15 MG TABLET PO SCH (09:00)
[2023-08-24 11:51] LABS: GLUCOMETER DEV NAME(LOC) 4E.2; GLUCOSE,POINT OF CARE 125 MG/DL (70-110)
[2023-08-24] MEDS ORDERED: AMOX1TAB16 PO (12:18)
[2023-08-24] MEDS ORDERED: CLON-592 PO (12:21)
[2023-08-24] MEDS ORDERED: FLUT1BLS IH (12:25)
[2023-08-24] MEDS ORDERED: INSLAN SQ (12:29)
[2023-08-24] MEDS ORDERED: NICO-803 TD (12:30)
[2023-08-24] MEDS ORDERED: PANT-31 PO (12:31)
[2023-08-24] MEDS ORDERED: QUET200T PO (12:32)
[2023-08-24] MEDS ORDERED: [UNRECOGNIZED DRUG - CODE] PO (12:34)
[2023-08-24] MEDS ORDERED: ALBU18HF12 IH (12:37)
[2023-08-24] MEDS ORDERED: BENZ-227 PO (12:38)
[2023-08-24] MEDS ORDERED: BISA10SU11 PR (12:39)
[2023-08-24] MEDS ORDERED: CHLO50TA61 PO (12:42)
[2023-08-24] MEDS ORDERED: LORA-1001 PO (12:43)
[2023-08-24] MEDS ORDERED: MAGN-169 PO (12:44)
[2023-08-24] MEDS ORDERED: ZOLP-280 PO (12:45)
[2023-08-24 19:36] LABS: GLUCOMETER DEV NAME(LOC) 6S.1B; GLUCOSE,POINT OF CARE 133 MG/DL (70-110)
== END 2023-08-24 15:15 | DRG 177 ==
LOC: 5S 03:35 → 6N 08-08 10:20 → 6S 08-22 18:41
PROVIDERS: ADMIT Internal Medicine; ATTEND Internal Medicine
PROC: XW033E5 Introduction of Remdesivir Anti-infective into Peripheral Vein, Percutaneous Approach, New Technology Group 5 (ICD-10-PCS; 2023-08-07)
PROC: 30233N1 Transfusion of Nonautologous Red Blood Cells into Peripheral Vein, Percutaneous Approach (ICD-10-PCS; principal; 2023-08-23)
DX: U07.1 COVID-19 (principal); J12.82 Pneumonia due to coronavirus disease 2019; J96.01 Acute respiratory failure with hypoxia; I48.20 Chronic atrial fibrillation, unspecified; C34.90 Malignant neoplasm of unspecified part of unspecified bronchus or lung; J44.0 Chronic obstructive pulmonary disease with (acute) lower respiratory infection; E22.2 Syndrome of inappropriate secretion of antidiuretic hormone; K22.2 Esophageal obstruction; F25.0 Schizoaffective disorder, bipolar type; E11.65 Type 2 diabetes mellitus with hyperglycemia; R13.10 Dysphagia, unspecified; Z91.199 Patient's noncompliance with other medical treatment and regimen due to unspecified reason; Z87.891 Personal history of nicotine dependence
CPT/HCPCS: 36600; 71045; 71250; 80048; 80053; 81001; 82805; 82962; 83735; 83935; 84100; 84300; 85025; 86850; 86900; 86901; 86923; 87040; 97530; J1100; J1644; J1815; J2060; J3230; J3475; J3535; J7040; J7050; P9016; Q9967; 36415-L1; 36415-TC